=== PATIENT | female | born 1980 | race Caucasian/White ===

== ENCOUNTER 2021-02-14 20:33 | Emergency (ER) | payer OTHER, SELFPAY ==
--- NOTE | ~2021-02-14 | XR_ITS ---
EXAMINATION: XR forearm RT 2V DATE: 02/14/2021 21:46 INDICATION: Diffuse rash at the right forearm TECHNIQUE: AP an lateral views of the right forearm were obtained. COMPARISON: none FINDINGS: Alignment is normal. No fracture. Partially visualized metallic intramedullary orthopedic instrumenta tion is seen in the distal right humeral diaphysis. Correlate with surgical history. Joint spaces are normal. No right elbow joint effusion. No periosteal reaction or osteolysis. Soft tissues are unrema rkable. No soft tissue gas or radiopaque foreign bodies. IMPRESSION: 1. No osseous abnormalities, soft tissue gas or radiopaque foreign bodies. Reviewed, dictated and finalized at location A.
[2021-02-14 21:09] VITALS: BP 156/100; PULSE 114; RESP 15; TEMP 36.9; O2SAT 99
[2021-02-14 22:49] VITALS: BP 133/108; PULSE 86; RESP 20; TEMP 36.9; O2SAT 100
[2021-02-14 23:01] VITALS: BP 125/93; O2SAT 97
[2021-02-14 23:16] VITALS: BP 114/85; O2SAT 99
--- NOTE | 2021-02-14 23:31 | ED.EXTPRO ---
HPI - Extremity Problem General Chief complaint: Extremity Problem,Nontraumatic Stated complaint: rash/ discoloration from finger poked by trash Time Seen by Provider: 02/14/21 23:13 Source: patient and RN notes reviewed Mode of arrival: ambulatory Limitations: no limitations History of Present Illness HPI Narrative: This is a 40 year old female who presents for evaluation of right forearm discoloration. She states 5 hours ago she accidently pricked herself on an unknown object while picking up trash. She developed red rash to her forearm afterwards. She states this rash hayes and it is similar to when she had a staph infection in the past. She also notes bruising to her forearm. She denies fever, chills, nausea, vomiting weakness. She states she feels fine but she is concerned she may have a staph infection. Her last tetanus was 10 years ago. Related Data Allergies Allergy/AdvReac Type Severity Reaction Status Date / Time Penicillins Allergy Unknown Hives Verified 02/14/21 22:57 Review of Systems Review of Systems: All systems reviewed & are unremarkable except as noted in HPI and below PMFSH Past Medical History Medical History (Updated 02/15/21 @ 01:05 by Becky Lomas MD) Depression Surgical History Surgical History (Updated 02/14/21 @ 23:33 by Becky Lomas MD) History of surgery on arm Family History Family History (System 08/16/19 @ 10:28 by Shanthi Singh) Mother Family history of lung cancer Other Family history of coronary artery disease Social History Social History (Updated 02/14/21 @ 23:34 by Becky Lomas MD) Smoking status: Current every day smoker Alcohol intake: current Substance use: never Gender identity (if verbalized by the patient): Female Exam Const: General: no acute distress and alert Orientation/consciousness: patient oriented x3 Eyes: EOM: EOMs intact bilaterally Resp: Effort & Inspection: normal respiratory effort and no retractions Auscultation: clear to auscultation bilaterally Cardio: Rate: regular rate Rhythm: regular rhythm Heart sounds: no murmurs Neuro: General: patient oriented x3 and moves all extremities Extrem: Other: FROM, right dorsum forearm with erythematous nonblanching streak, with petechia and bruising to volar surface, no swelling Psych: Mental Status: mental status grossly normal Affect: normal affect Course Reevaluation(s) Reevaluation #1: PAtient labs are unremarkable so will discharge with oral antibiotics. Date: 02/15/21 Time: 01:03 Vital Signs Vital signs: Vital Signs Temperature 98.4 F 02/14/21 21:09 Pulse Rate 114 H 02/14/21 21:09 Respiratory Rate 15 02/14/21 21:09 Blood Pressure 156/100 H 02/14/21 21:09 Pulse Oximetry 99 02/14/21 21:09 Temperature 98.4 F 02/14/21 22:49 Pulse Rate 71 02/15/21 01:41 Respiratory Rate 22 H 02/15/21 01:41 Blood Pressure 124/100 H 02/15/21 01:41 Pulse Oximetry 100 02/15/21 01:41 MDM - Extremity (Nontraumatic) Lab Data Result diagrams: 02/15/21 00:18 02/15/21 00:18 Labs: Lab Results 02/15/21 02/15/21 Range/Units 00:18 00:18 WBC 9.5 (4.5-10.0) K/mm3 RBC 3.93 L (4.2-5.4) M/mm3 Hgb 12.7 (12.0-15.0) g/dL Hct 38.4 (37.0-47.0) % MCV 97.7 (80-100) fl MCH 32.3 (26-34) pg MCHC 33.1 (32-36) g/dl RDW 12.5 (11.5-14.5) % Plt Count 353 (150-375) k/mm3 MPV 9.5 (7.4-10.4) fl Immature Gran % (Auto) 0.4 (0-0.5) % Neut % (Auto) 68.5 (45.5-73.1) % Lymph % (Auto) 23.1 (18.3-44.2) % [place] % (Auto) 5.6 (2.6-8.5) % Eos % (Auto) 2.0 (0-4.4) % Baso % (Auto) 0.4 (0.2-1.2) % Lymph # (Auto) 2.18 (0.9-3.2) K/mm3 [place] # (Auto) 0.5 (0.1-0.6) K/mm3 Eos # (Auto) 0.2 (0-0.3) K/mm3 Baso # (Auto) 0.0 (0.0-0.1) K/mm3 Abs Immat Gran (auto) 0.04 H (0.00-0.031) K/mm3 Absolute Neuts (auto) 6.5 (1.3-6.7) K/mm3 Absolute Nucleated RB
[2021-02-15 00:23] LABS: Basophils Percent Auto 0.4 % (0.2-1.2); Eosinophils Absolute Auto 0.2 K/mm3 (0-0.3); Hematocrit 38.4 % (37.0-47.0); Hemoglobin 12.7 g/dL (12.0-15.0); Immature Granulocyte Absolute 0.04 K/mm3 (0.00-0.031); Immature Granulocyte Percent A 0.4 % (0-0.5); Lymphocytes Absolute Auto 2.18 K/mm3 (0.9-3.2); Lymphocytes Percent Auto 23.1 % (18.3-44.2); Mean Corpuscular HGB Conc 33.1 g/dl (32-36); Mean Corpuscular Hemoglobin 32.3 pg (26-34); Mean Corpuscular Volume 97.7 fl (80-100); Mean Platelet Volume 9.5 fl (7.4-10.4); Monocytes Absolute Auto 0.5 K/mm3 (0.1-0.6); Monocytes Percent Auto 5.6 % (2.6-8.5); Neutrophils Absolute Auto 6.5 K/mm3 (1.3-6.7); Neutrophils Percent Auto 68.5 % (45.5-73.1); Platelet Count Result 353 k/mm3 (150-375); Red Blood Count 3.93 M/mm3 (4.2-5.4); Red Cell Distribution Width 12.5 % (11.5-14.5); White Blood Count 9.5 K/mm3 (4.5-10.0)
--- NOTE | 2021-02-15 00:28 | PC.NURSE ---
Ancef not available in ED pyxis. Pharmacy notified, med to be tubed to unit.
[2021-02-15 00:39] LABS: Alanine Aminotransferase 14 U/L (4-35); Albumin Level 4.3 g/dL (3.5-5.1); Alkaline Phosphatase 61 U/L (38-126); Anion Gap 8 mmol/L (8-16); Aspartate Amino Transferase 29 U/L (14-36); Bilirubin,Total 0.3 mg/dL (0.2-1.3); Blood Urea Nitrogen 13 mg/dL (7-17); CRP 0.6 mg/dL (<1.0); Calcium 9.6 mg/dL (8.4-10.2); Carbon Dioxide 21 mmol/L (22-30); Chloride 109 mmol/L (98-107); Estimated CRCL calculation 80 ml/min; Estimated Glomerular Filt Rate > 60; Glucose 94 mg/dL (65-105); Potassium 3.4 mmol/L (3.4-5.0); Sodium 138 mmol/L (137-145)
[2021-02-15] MEDS: TETANUS,DIPHTHERIA,AC PERTUSSIS ADULT (0.5 ML) BOOSTRIX IM (00:57)
[2021-02-15 01:41] VITALS: BP 124/100; PULSE 71; RESP 22; O2SAT 100
== END 2021-02-15 01:42 | disposition home or self-care (01) ==
PROVIDERS: Emergency Provider General Practice; PCP Nurse Practitioner Family
DX: L03.113 Cellulitis of right upper limb (principal); F17.200 Nicotine dependence, unspecified, uncomplicated; Z23 Encounter for immunization
CPT/HCPCS: 36415; 73090; 80053; 85025; 86140; 90471; 90715; 96365; 99284; A9270; J0690

== ENCOUNTER 2023-03-21 08:14 | Emergency (ER) | payer OTHER, SELFPAY ==
--- NOTE | 2023-03-21 08:23 | ED.URI ---
HPI - URI/Sore Throat General Chief Complaint: Upper Respiratory Infection Stated Complaint: CONGESTION/HEADACHE/SORE THROAT/COUGH/SOB Time Seen by Provider: 03/21/23 08:23 Source: patient Mode of arrival: ambulatory Limitations: no limitations History of Present Illness HPI Narrative: Patient is a 42-year-old female who presents with congestion, headache, sore throat, cough since . Patient states she has used [id number] cold medicine but is still not better. Patient stayed home from work yesterday to rest with no relief. Denies any fever, chills, ear pain, nausea, vomiting, diarrhea. Patient was COVID negative on at home test. Related Data Home Medications Medication Instructions Recorded Confirmed bupropion HCl 150 mg tablet,12 hr 150 mg PO BID 03/21/23 03/21/23 sustained-release Allergies Allergy/AdvReac Type Severity Reaction Status Date / Time Penicillins Allergy Unknown Hives Verified 03/21/23 08:25 Review of Systems Review of Systems: All systems reviewed & are unremarkable except as noted in HPI and below Constitutional: Constitutional: Denies body ache(s), Denies chills, Reports fatigue, Denies fever(s), Denies headache(s), Denies malaise and Denies weakness Eyes: Eyes: Denies blurry vision, Denies itchy eyes and Denies loss of vision ENT: Denies otalgia, Reports headache(s), Reports nasal congestion, Denies sinus pain and Reports sore throat Cardiovascular: Cardiovascular: Denies chest pain, Denies irregular heart rhythm and Denies dyspnea Respiratory: Respiratory: Reports cough and Denies dyspnea Gastrointestinal: Gastrointestinal: Denies abdominal pain, Denies diarrhea, Denies nausea and Denies vomiting Musculoskeletal: Musculoskeletal: Denies back pain, Denies myalgias and Denies arthralgias Integumentary/Breasts: Skin/Breast: Denies pruritus and Denies rash Neurologic: Denies headache(s), Denies loss of vision and Denies weakness Psychiatric: Psychiatric: Reports no additional psychiatric complaints Endocrine: Endocrine: Denies fatigue Allergic/Immunologic: Allergic/Immunologic: Denies itchy eyes PMFSH Past Medical History Medical History (Updated 03/21/23 @ 08:45 by Tara Mcginnis, ANAI) Depression Surgical History Surgical History (Updated 02/14/21 @ 23:33 by Becky Lomas MD) History of surgery on arm Family History Family History (System 08/16/19 @ 10:28 by Shanthi Singh) Mother Family history of lung cancer Other Family history of coronary artery disease Social History Social History (Updated 02/14/21 @ 23:34 by Becky Lomas MD) Smoking status: Current every day smoker Alcohol intake: current Substance use: never Gender identity (if verbalized by the patient): Female Comments At time of signature, agree with nursing past medical, surgical, social and family history. There is no relevant family history pertinent to the presenting complaint. Exam Const: General: cooperative, healthy appearing, comfortable, no acute distress and well nourished Nutritional Appearance: well nourished Orientation/consciousness: patient oriented x3 Limitations: no limitations HENMT: Head: normal to inspection, normocephalic and atraumatic Ears: hearing grossly normal bilaterally, external ears normal, TM's normal bilaterally, EAC's normal and no periauricular adenopathy Face/Nose/Sinus: Normal external nose present, Abnormal mucous membranes and turbinates present erythematous bilateral and diffuse, normal facial exam, sinuses nontender and face symmetric Face and sinus: normal facial exam, sinuses nontender and face symmetric Mouth: Yes Normal oral and palatal mucosa present, Yes lip normal, Yes tongue normal, Yes Normal salivary glands and ducts present, Yes oropharynx normal and Yes moist mucous membranes Teeth and gingiva: dentition normal Throat: posterior oropharynx normal, uvula midline, abnormal tonsil bilateral hypertrophy 2+ and
[2023-03-21 08:28] VITALS: BP 120/84; PULSE 94; RESP 16; TEMP 36.6; O2SAT 98
--- NOTE | 2023-04-01 12:27 | PC.NURSE ---
PER ANNY IN [facility], NEITHER FACILITY RECEIVED SPECIMEN TO COMPLETE TESTING ON THE THROAT CULTURE.
== END 2023-03-21 08:50 | disposition home or self-care (01) ==
PROVIDERS: Emergency Provider Nurse Practitioner Family; PCP Nurse Practitioner Family
DX: J06.9 Acute upper respiratory infection, unspecified (principal); F17.200 Nicotine dependence, unspecified, uncomplicated; F32.A Depression, unspecified
CPT/HCPCS: 87081; 87804; 87880; 99213; G0463

== ENCOUNTER 2023-08-13 15:46 | Emergency (ER) | payer OTHER, SELFPAY ==
[2023-08-13 16:03] VITALS: BP 120/81; PULSE 101; RESP 16; TEMP 36.5; O2SAT 100
--- NOTE | 2023-08-13 16:06 | ED.URI ---
HPI - URI/Sore Throat General Chief Complaint: Upper Respiratory Infection Stated Complaint: CONGESTION/SORE THROAT/NO ENERGY/EYES SWELLING Source: patient and RN notes reviewed Mode of arrival: ambulatory Limitations: no limitations History of Present Illness HPI Narrative: 42 y/o female presented for c/o sinus congestion and pressure worsening since yesterday. Reports sore throat and waking with swollen eyes this morning. Endorses tearing but denies purulent drainage or itching from eyes. Started Claritin yesterday without much improvement. Denies cough, sob, wheezing, n/v/d/f/c. MD elicited complaint: cough Related Data Allergies Allergy/AdvReac Type Severity Reaction Status Date / Time Penicillins Allergy Unknown Hives Verified 08/13/23 15:58 Review of Systems Review of Systems: CONSTITUTIONAL: Endorses malaise, chills, sweats, fever EYES: Denies visual changes, redness, or discharge ENT: Reports rhinorrhea, congestion, sinus pain, otalgia, sore throat CARDIOVASCULAR: Denies chest pain, palpitations, edema RESPIRATORY: Reports post nasal drainage. Denies dyspnea GASTROINTESTINAL: Denies abdominal pain, nausea, vomiting, diarrhea SKIN: Denies rash or itching MUSCULOSKELETAL: Denies myalgia NEUROLOGIC: Denies headache PMFSH Past Medical History Medical History Depression Surgical History Surgical History History of surgery on arm Family History Family History Mother Family history of lung cancer Other Family history of coronary artery disease Social History Social History Smoking status: Current every day smoker Alcohol intake: current Substance use: never Gender identity (if verbalized by the patient): Female Exam Narrative: GENERAL: well-appearing, nontoxic no acute distress. HEAD: Normocephalic EYES: PERRLA, conjunctivae clear ENT: Mucous membranes moist. Bilateral nares with green drainage, red turbinates. TMs pearly gunn with dull light reflex bilaterally; no tragal tenderness. Oropharynx erythematous without lesions or exudate, tonsils 1+. no drooling, no hoarseness, no trismus, uvula midline. No tripod positioning, muffled voice, soft palate or pharyngeal wall bulging NECK: Supple. No lymphadenopathy CHEST: Clear to auscultation, breath sounds equal. No wheezing, rhonchi, rales, or stridor. No respiratory distress, speaks in full sentences. HEART: Regular rate and rhythm. No murmur heard. SKIN: Warm, dry, no rash. NEURO: Alert and oriented x3. PSYCH: Normal mood and affect Course Course Emergency Course: Patient is aware of diagnosis, understands and agrees to treatment plan. Anticipatory guidance given. Patient agrees to follow-up as directed and is aware of reasons to seek care at the emergency department. Portions of this record may have been created with voice recognition software Level of Care: Express Care Visit Vital Signs Vital signs: Vital Signs Temperature 97.7 F 08/13/23 16:03 Pulse Rate 101 H 08/13/23 16:03 Respiratory Rate 16 08/13/23 16:03 Blood Pressure 120/81 08/13/23 16:03 Pulse Oximetry 100 08/13/23 16:03 Temperature 97.7 F 08/13/23 16:03 Pulse Rate 101 H 08/13/23 16:03 Respiratory Rate 16 08/13/23 16:03 Blood Pressure 120/81 08/13/23 16:03 Pulse Oximetry 100 08/13/23 16:03 reviewed MDM - URI/Sore Throat MDM Narrative Medical decision making narrative: Neg covid, flu strep. Results reviewed with patient. Discussed physical exam findings. Advised supportive measures and signs/symptoms to go to the ER. Pt is appropriate for outpt treatment and f/u. Differential Diagnosis Differential diagnosis: Likely upper respiratory infection, sinusitis and viral infection Discharge Plan Discharge Cl
== END 2023-08-13 16:27 | disposition home or self-care (01) ==
PROVIDERS: Emergency Provider Nurse Practitioner Family; PCP Nurse Practitioner Family
DX: J06.9 Acute upper respiratory infection, unspecified (principal); Z20.822 Contact with and (suspected) exposure to COVID-19; F17.200 Nicotine dependence, unspecified, uncomplicated
CPT/HCPCS: 87081; 87426; 87804; 87880; 99213; C9803; G0463

== ENCOUNTER 2023-08-29 08:49 | Emergency (ER) | payer OTHER, SELFPAY ==
[2023-08-29 08:53] VITALS: BP 122/96; PULSE 108; RESP 16; TEMP 36.6; O2SAT 100
--- NOTE | 2023-08-29 09:29 | ED.URI ---
HPI - URI/Sore Throat General Chief Complaint: Upper Respiratory Infection Stated Complaint: Cough;Sore Throat;Congestion Time Seen by Provider: 08/29/23 09:20 Source: patient and RN notes reviewed Mode of arrival: ambulatory Limitations: no limitations History of Present Illness HPI Narrative: Patient presents today with a one-week history of nasal congestion and a 3 day history of cough, sore throat, chills and sweats, headache. Denies fever. Reports shortness of breath with coughing episodes. She has been taking DayQuil and NyQuil with mild relief. Related Data Allergies Allergy/AdvReac Type Severity Reaction Status Date / Time Penicillins Allergy Unknown Hives Verified 08/29/23 09:25 Review of Systems Review of Systems: CONSTITUTIONAL: Denies body aches, fever.+ chills, sweats EYES: Denies visual changes, redness, or discharge. ENT: Denies rhinorrhea, or otalgia.+ congestion, sore throat CARDIOVASCULAR: Denies chest pain, palpitations, or edema. RESPIRATORY: Denies dyspnea.+ cough GASTROINTESTINAL: Denies abdominal pain, nausea, vomiting, or diarrhea. GENITOURINARY: Denies dysuria or hematuria. SKIN: Denies rash, itching, or wounds. MUSCULOSKELETAL: Denies back pain, joint pain, or myalgia. NEUROLOGIC: Denies numbness, tingling, or weakness.+ headache PSYCH: Denies depression or anxiety. [facility] Past Medical History Medical History Depression Surgical History Surgical History History of surgery on arm Family History Family History Mother Family history of lung cancer Other Family history of coronary artery disease Social History Social History Smoking status: Current every day smoker Alcohol intake: current Substance use: never Gender identity (if verbalized by the patient): Female Comments At time of signature, I have reviewed and agree with nursing past medical, surgical, social and family history unless otherwise noted. Please see nursing chart for further information. There is no relevant family history pertinent to the presenting complaint Exam Narrative: GENERAL: Ill-appearing, well-nourished, and in no acute distress. HEAD: Normocephalic, atraumatic. EYES: EOMI. No redness or drainage. Conjunctivae normal. ENT: Mucous membranes pink and moist. Nares congested with rhinorrhea. TMs normal bilaterally. Throat normal. Uvula midline. NECK: Normal AROM. Supple. No lymphadenopathy. CHEST: No respiratory distress. Clear to auscultation. HEART: Regular rate and rhythm. No murmur appreciated. EXTREMITIES: Normal range of motion. No edema. SKIN: Warm, dry, no rash. Capillary refill normal. Normal skin turgor. NEURO: No focal deficits. Alert and oriented x3. Gait steady. PSYCH: Normal affect. No signs of depression or anxiety. Course Course Level of Care: Express Care Visit Vital Signs Vital signs: Vital Signs Temperature 97.8 F 08/29/23 08:53 Pulse Rate 108 H 08/29/23 08:53 Respiratory Rate 16 08/29/23 08:53 Blood Pressure 122/96 H 08/29/23 08:53 Pulse Oximetry 100 08/29/23 08:53 Temperature 97.8 F 08/29/23 08:53 Pulse Rate 108 H 08/29/23 08:53 Respiratory Rate 16 08/29/23 08:53 Blood Pressure 122/96 H 08/29/23 08:53 Pulse Oximetry 100 08/29/23 08:53 Reviewed MDM - URI/Sore Throat MDM Narrative Medical decision making narrative: Rapid strep negative. Culture pending. Prescription for prednisone and Tessalon Perles sent to pharmacy to treat patient's symptoms. Discussed [id number] treatment and duration of illness as well. Anticipatory guidance given. Differential Diagnosis Differential diagnosis: Likely upper respiratory infection, otitis media, sinusitis, viral infection, bron
== END 2023-08-29 09:37 | disposition home or self-care (01) ==
PROVIDERS: Emergency Provider Nurse Practitioner; PCP Nurse Practitioner Family
DX: J06.9 Acute upper respiratory infection, unspecified (principal); F17.200 Nicotine dependence, unspecified, uncomplicated
CPT/HCPCS: 87081; 87880; 99213; G0463

== ENCOUNTER 2024-02-07 16:51 | Emergency (ER) | payer MEDICAID, SELFPAY ==
[2024-02-07 17:25] VITALS: BP 105/79; PULSE 86; RESP 16; TEMP 36; O2SAT 99
--- NOTE | 2024-02-07 18:13 | ED.GENADULT ---
HPI - General Adult General Chief complaint: Nausea/Vomiting/Diarrhea Stated complaint: STOMACH PAIN/VOMITING/DIZZY Time Seen by Provider: 02/07/24 18:13 Source: patient Mode of arrival: ambulatory Limitations: no limitations History of Present Illness HPI narrative: 43-year-old female patient presents to the [facility] for request of a return to work note. Patient states that Thursday last week she started having some nausea and and Thursday last week was having nausea, vomiting, chills, body aches and overall just not feeling well. Patient states she attributed to a possible influenza. Patient states she did test herself for COVID and did test negative for COVID. 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 Patient states she is feeling much better today. Patient states she has slight headache but overall able to keep down food and fluid and no vomiting today and no fever the past 24 hours. Related Data Home Medications Medication Instructions Recorded Confirmed venlafaxine 75 mg capsule,extended 75 mg PO DAILY 02/07/24 02/07/24 release 24 hr (Effexor XR) Allergies Allergy/AdvReac Type Severity Reaction Status Date / Time Penicillins Allergy Unknown Hives Verified 02/07/24 17:28 Review of Systems Review of Systems: CONSTITUTIONAL: Denies fever, chills, or sweats. EYES: Denies visual changes, redness, or discharge. ENT: Denies rhinorrhea, congestion, sore throat, or otalgia. CARDIOVASCULAR: Denies chest pain, palpitations, or edema. RESPIRATORY: Denies cough or dyspnea. GASTROINTESTINAL: Denies abdominal pain, Resolving nausea, vomiting, or diarrhea. GENITOURINARY: Denies dysuria or hematuria. SKIN: Denies rash or itching. MUSCULOSKELETAL: Denies back pain, joint pain, or myalgia. NEUROLOGIC: Denies headache, numbness, or weakness. PSYCHIATRIC: Denies anxiety or depression. [facility], [facility] Past Medical History Medical History Depression Surgical History Surgical History History of surgery on arm Family History Family History Mother Family history of lung cancer Other Family history of coronary artery disease Social History Social History Smoking status: Current every day smoker Alcohol intake: current Substance use: never Gender identity (if verbalized by the patient): Female Comments at the time of my signature I agree with nursing past medical history, surgical, social, and family history. There is no relevant family history pertinent to the presenting complaint. Exam Narrative: GENERAL: Well-appearing, well-nourished, and in no acute distress. HEAD: Normocephalic, atraumatic. EYES: PERRLA and EOMI. ENT: Nares clear, no rhinorrhea or epistaxis. Mucous membranes moist. posterior pharynx with no erythema, tonsillar enlargement, exudates or lesions present. Bilateral TMs are clear with no erythema or foreign bodies the canal. NECK: Supple. No lymphadenopathy CHEST: Clear to auscultation. No respiratory distress. HEART: Regular rate and rhythm. No murmur heard. Normal peripheral pulses. ABDOMEN: Soft, nontender, nondistended, normal active bowel sounds. EXTREMITIES: Normal range of motion. No edema. SKIN: Warm, dry, no rash. NEURO: No focal deficits. Alert and oriented x3. Course Course Level of Care: Express Care Visit Vital Signs Vital signs: Vital Signs Temperature 36.0 C L 02/07/24 17:25 Pulse Rate 86 02/07/24 17:25 Respiratory Rate 16 02/07/24 17:25 Blood Pressure 105/79 02/07/24 17:25 Pulse Oximetry 99 02/07/24 17:25 Temperature 36.0 C L 02/07/24 17:25 Pulse Rate 86 02/07/24 17:25 Respiratory Rate 16 02/07/24 17:25 Blood Pressure 105/79
== END 2024-02-07 18:24 | disposition home or self-care (01) ==
PROVIDERS: Emergency Provider Nurse Practitioner Family; PCP Nurse Practitioner Family
DX: R11.2 Nausea with vomiting, unspecified (principal); F17.200 Nicotine dependence, unspecified, uncomplicated; F32.A Depression, unspecified
CPT/HCPCS: 99211; G0463

== ENCOUNTER 2024-02-29 17:33 | Emergency (ER) | payer MEDICAID, SELFPAY ==
[2024-02-29 17:38] VITALS: BP 146/103; PULSE 94; RESP 18; TEMP 36.9; O2SAT 100
--- NOTE | 2024-02-29 17:42 | ED.GENADULT ---
HPI - General Adult General Chief complaint: Upper Respiratory Infection Stated complaint: SORE THROAT/CONGETION/EARS/FEVER Time Seen by Provider: 02/29/24 17:44 Source: patient, RN notes reviewed and old records reviewed Mode of arrival: ambulatory Limitations: no limitations History of Present Illness HPI narrative: Patient presents today with complaints of runny nose, sore throat, cough, fever for 2 days. She reports that symptoms began Thursday morning, she took COVID test approximately 8 hours later. This was negative. She has not retested since. She has been taking Tylenol and ibuprofen for her symptoms, moderate relief. Is not short of breath. No other concerns at this time. Related Data Home Medications Medication Instructions Recorded Confirmed No Home Medications 02/29/24 02/29/24 Allergies Allergy/AdvReac Type Severity Reaction Status Date / Time Penicillins Allergy Unknown Hives Verified 02/29/24 17:46 Review of Systems Review of Systems: All systems reviewed & are unremarkable except as noted in HPI and below Constitutional: Constitutional: Reports no additional constitutional complaints ENT: Reports system reviewed and no additional complaints, except as documented Cardiovascular: Cardiovascular: Reports no additional cardiovascular complaints Respiratory: Respiratory: Reports no additional respiratory complaints Gastrointestinal: Gastrointestinal: Reports no additional gastrointestinal complaints [facility] Past Medical History Medical History Depression Surgical History Surgical History History of surgery on arm Family History Family History Mother Family history of lung cancer Other Family history of coronary artery disease Social History Social History Smoking status: Current every day smoker Alcohol intake: current Substance use: never Gender identity (if verbalized by the patient): Female Comments At the time of my signature, I reviewed and agree with the nursing past medical, surgical, social, and family history. There is no relevant family history pertinent to the patient complaint. Exam Const: General: cooperative, no acute distress, alert and awake Orientation/consciousness: oriented to person, oriented to place and oriented to time HENMT: Head: normal to inspection Resp: Effort & Inspection: normal respiratory effort and able to speak in complete sentences Auscultation: clear to auscultation bilaterally, no crackles, no rales, no rhonchi and no wheezes Cardio: Palpation: normal PMI Rate: regular rate Rhythm: regular rhythm Heart sounds: S1 normal heart sound present and S2 normal heart sound present Neuro: General: oriented to person, oriented to place and oriented to time Cranial nerves: Yes CN's II-XII intact bilaterally Psych: Appearance: grossly normal Thought process: Normal thought process present Insight: Good insight present (Psych) Judgement: Good judgement present (Psych) Course Course Level of Care: Express Care Visit Vital Signs Vital signs: Vital Signs Temperature 98.4 F 02/29/24 17:38 Pulse Rate 94 02/29/24 17:38 Respiratory Rate 18 02/29/24 17:38 Blood Pressure 146/103 H 02/29/24 17:38 Pulse Oximetry 100 02/29/24 17:38 Oxygen Delivery Room Air 02/29/24 17:38 Temperature 98.4 F 02/29/24 17:38 Pulse Rate 94 02/29/24 17:38 Respiratory Rate 18 02/29/24 17:38 Blood Pressure 146/103 H 02/29/24 17:38 Pulse Oximetry 100 02/29/24 17:38 Oxygen Delivery Room Air 02/29/24 17:38 Reviewed Medical Decision Making MDM Narrative Medical decision making narrative: Patient with sore throat, cough, fever for approximately 48 hours. Negative for rapid strep, culture sent. Nega
== END 2024-02-29 18:29 | disposition home or self-care (01) ==
PROVIDERS: Emergency Provider Nurse Practitioner Family; PCP Nurse Practitioner Family
DX: J06.9 Acute upper respiratory infection, unspecified (principal); F17.200 Nicotine dependence, unspecified, uncomplicated; Z20.822 Contact with and (suspected) exposure to COVID-19
CPT/HCPCS: 87081; 87426; 87804; 87880; 99213; G0463

== ENCOUNTER 2024-12-05 15:08 | Emergency (ER) | payer MEDICAID, SELFPAY ==
[2024-12-05 15:22] VITALS: BP 116/82; PULSE 96; RESP 16; TEMP 37; O2SAT 99
[2024-12-05 15:35] LABS: EDCOVIDSCREEN Negative (Negative); EDINFLUASCREEN Negative (Negative); EDINFLUBSCREEN Negative (Negative)
--- NOTE | 2024-12-05 15:35 | ED.URI ---
HPI - URI/Sore Throat General Chief Complaint: Upper Respiratory Infection Stated Complaint: Congestion/Vomiting Source: patient and RN notes reviewed Mode of arrival: ambulatory Limitations: no limitations History of Present Illness HPI Narrative: Patient is a 44-year-old female who presents to the [facility] with complaints of nasal congestion, nasal drainage, headache, and bilateral ear pain ( worse on the right than the left). Patient states that her symptoms developed on Thursday. They have continued to worsen. She denies cough, chest pain, shortness of breath. Denies sore throat. Unsure of any known sick contacts. Denies fever. Related Data Allergies Allergy/AdvReac Type Severity Reaction Status Date / Time Penicillins Allergy Unknown Hives Verified 12/05/24 15:15 Review of Systems Review of Systems: CONSTITUTIONAL: Denies fever, chills, or sweats. EYES: Denies visual changes, redness, or discharge. ENT: Reports otalgia but denies sore throat. Reports congestion. CARDIOVASCULAR: Denies chest pain, palpitations, or edema. RESPIRATORY: Denies cough or dyspnea. GASTROINTESTINAL: Denies abdominal pain, nausea, vomiting, or diarrhea. GENITOURINARY: Denies dysuria or hematuria. SKIN: Denies rash or itching. MUSCULOSKELETAL: Denies back pain, joint pain, or myalgia. NEUROLOGIC: Reports headache but denies numbness or weakness. Pertinent positives per HPI. PMFSH Past Medical History Medical History Depression Surgical History Surgical History History of surgery on arm Family History Family History Mother Family history of lung cancer Other Family history of coronary artery disease Social History Social History Smoking status: Current every day smoker Alcohol intake: current Substance use: never Gender identity (if verbalized by the patient): Female Comments At the time of my signature, I reviewed and agree with the nursing past medical, surgical, social, and family history. There is no relevant family history pertinent to the patient complaint. Exam Narrative: GENERAL: This is a well-nourished, well-developed patient, in no apparent distress. HEAD: normocephalic, atraumatic. EYES: Sclera clear/white. Vision is grossly intact. EARS: External ears normal, auditory canals clear and without drainage, Bilateral TMs erythematous; right TM bulging. Hearing grossly intact. NOSE: External nose normal. + congestion. Sinus tenderness. THROAT: Mucous membranes moist, posterior pharynx clear. NECK: Neck supple, non-tender without lymphadenopathy, masses or thyromegaly. CARDIOVASCULAR: Regular rate and rhythm without murmurs, gallops, or rubs. RESPIRATORY: Clear to auscultation. Breath sounds equal bilaterally. No wheezes, rales, or rhonchi. GASTROINTESTINAL: Abdomen soft, non-tender, nondistended. Bowel sounds are active. No hepato-splenomegaly, or palpable masses. No guarding. SKIN: warm, intact with no suspicious lesions or rash, good texture and turgor. NEURO: awake, alert, and oriented to person, place and time. There were no obvious focal neurologic abnormalities. Course Course Level of Care: Express Care Visit Vital Signs Vital signs: Vital Signs Temperature 98.6 F 12/05/24 15:22 Pulse Rate 96 12/05/24 15:22 Respiratory Rate 16 12/05/24 15:22 Blood Pressure 116/82 12/05/24 15:22 Pulse Oximetry 99 12/05/24 15:22 Temperature 98.6 F 12/05/24 15:22 Pulse Rate 96 12/05/24 15:22 Respiratory Rate 16 12/05/24 15:22 Blood Pressure 116/82 12/05/24 15:22 Pulse Oximetry 99 12/05/24 15:22 Reviewed MDM - URI/Sore Throat MDM Narrative Medical decision making narrative: Take antibiotics as directed. May given ibuprofen and/or Tylenol as needed for pain and/or fever. Follow up with primary care provider in 7-10 days to have ear rechecked. Go to the ER for any new or worsening symptoms. Avoid smoking/second-hand smoke. Continue to take Tylenol or Motrin for pain. Increase your Vitamin C intake. Use a humidifier or vaporizer at night. Take Medications as prescribed. Drink plenty of water. 8-10 glasses per day. Use flonase 2 times per day for 5 days then as needed Take mucinex 2 times per day and be sure to take with 8oz of water. Follow up with Primary provider if not getting better. Differential Diagnosis Differential diagnosis: Likely upper respiratory infection, otitis media, sinusitis, viral infection, influenza and other (covid) Lab Data Attestation: I reviewed the patient's lab results. Labs: Lab Results 12/05/24 Range/Units 15:33 POC Influenza A Ag Negative (Negative) POC Influenza B Ag Negative (Negative) POC SARS CoV-2 Ag Negative (Negative) Critical Care Time Critical Care Time Critical Care Time: No Discharge Plan Discharge Clinical Impression: Acute right otitis media Sinusitis Qualifiers: Sinusitis location: unspecified location Chronicity: unspecified Qualified Code(s): J32.9 - Chronic sinusitis, unspecified Patient Disposition: Home, Self-Care Condition: Stable Instructions: Antibiotic Form, Sinusitis (ED), Ear Infection (ED) Additional Instructions: Take antibiotics as directed. May given ibuprofen and/or Tylenol as needed for pain and/or fever. Follow up with primary care provider in 7-10 days to have ear rechecked. Go to the ER for any new or worsening symptoms. Avoid smoking/second-hand smoke. Continue to take Tylenol or Motrin for pain. Increase your Vitamin C intake. Use a humidifier or vaporizer at night. Take Medications as prescribed. Drink plenty of water. 8-10 glasses per day. Use flonase 2 times per day for 5 days then as needed Take mucinex 2 times per day and be sure to take with 8oz of water. Follow up with Primary provider if not getting better. Patient Language: Macedonian Prescriptions: New azithromycin 250 mg tablet See Rx Instructions .ROUTE .COMPLEX Qty: 6 0RF Rx Instructions: For 250 mg dose pack: take 500 mg today (day 1), then 250 mg for 4 days (days 2-5) fluticasone propionate [Flonase Allergy Relief] 50 mcg/actuation spray,suspension 1 spray intranasal BID Qty: 16 0RF Rx Instructions: administer into each nostril Follow-up/Referrals: PHYSICIAN,ONLINE MARKETING DIRECTOR [Primary Care Provider] - Stand Alone Forms: Work/School Release IP Time of Disposition: 15:38
== END 2024-12-05 15:43 | disposition home or self-care (01) ==
PROVIDERS: Emergency Provider Nurse Practitioner
DX: H66.91 Otitis media, unspecified, right ear (principal); J32.9 Chronic sinusitis, unspecified; Z20.822 Contact with and (suspected) exposure to COVID-19; F17.200 Nicotine dependence, unspecified, uncomplicated
CPT/HCPCS: 87426; 87804; 99213; G0463

== ENCOUNTER 2025-02-05 18:03 | Emergency (ER) | payer OTHER, SELFPAY ==
[2025-02-05 18:54] VITALS: BP 134/98; PULSE 114; RESP 16; TEMP 36.8; O2SAT 100
--- NOTE | 2025-02-05 18:54 | ED_ITS ---
HPI - Skin/Abscess/Foreign Bdy General Chief complaint: Extremity Problem,Nontraumatic Stated complaint: L ELBOW PAIN/REDNESS Time Seen by Provider: 02/05/25 18:50 Source: patient Mode of arrival: ambulatory Limitations: no limitations History of Present Illness HPI narrative: Lynn is a 44-year-old female patient presenting to the clinic today with complaints of left elbow pain and redness x1 0.5 weeks. She reports 1 and half weeks ago she was possibly bit by a spider. Has redness, swelling, and pain to the left elbow. No known injury. Denies fevers, chills, body aches. Related Data Allergies Allergy/AdvReac Type Severity Reaction Status Date / Time Penicillins Allergy Unknown Hives Verified 12/05/24 15:15 Review of Systems Review of Systems: Pertinent positives per HPI. Patient denies any fever, chills, rash, headache, visual changes, dizziness, cough, runny nose, sore throat, shortness of breath, chest pain, palpitations, nausea, vomiting, diarrhea, constipation, abdominal pain, or any urinary issues. PMFSH Past Medical History Medical History Depression Surgical History Surgical History History of surgery on arm Family History Family History Mother Family history of lung cancer Other Family history of coronary artery disease Social History Social History Smoking status: Current every day smoker Alcohol intake: current Substance use: never Gender identity (if verbalized by the patient): Female Comments At the time of my signature, I reviewed and agree with the nursing past medical, surgical, social, and family history. There is no relevant family history pertinent to the patient complaint. Exam Narrative: General: Well-developed, well nourished, in no apparent distress Head: Normocephalic, atraumatic. Cardio: Regular rate and rhythm, s1 and s2 normal, no murmur appreciated. Resp: Clear to auscultation bilaterally, no rhonchi, rales, wheezing or rubs. Musculoskeletal: No deformity, no drainage, redness, swelling, erythema, and tender to palpation over the left elbow with very minimal fluctuance, limited flexion and extension due to pain and swelling, redness measuring approximately 3 cm by 3 cm, muscle strength strong and equal, peripheral pulse strong, no edema, no cyanosis, normal gait and station Course Course Emergency Course: Portions of this record may have been created with voice recognition software. Level of Care: Express Care Visit Vital Signs Vital signs: Vital Signs Temperature 36.8 C 02/05/25 18:54 Pulse Rate 114 H 02/05/25 18:54 Respiratory Rate 16 02/05/25 18:54 Blood Pressure 134/98 H 02/05/25 18:54 Pulse Oximetry 100 02/05/25 18:54 Temperature 36.8 C 02/05/25 18:54 Pulse Rate 114 H 02/05/25 18:54 Respiratory Rate 16 02/05/25 18:54 Blood Pressure 134/98 H 02/05/25 18:54 Pulse Oximetry 100 02/05/25 18:54 Vital signs reviewed MDM - Skin/Abscess/Foreign Bdy MDM Narrative Medical decision making narrative: At the time of visit patient is resting comfortably on the exam table. Patient appears to be nontoxic. Plan: I suspect patient has left elbow cellulitis. Prescription for clindamycin was sent to the pharmacy. Supportive measures were discussed with the patient and they voiced understanding discharge instructions and agrees to treatment plan. Return precautions reviewed Differential Diagnosis Differential diagnosis: Likely abscess of skin or subcutaneous tissue, viral exanthem, dermatophytosis, urticaria, herpes zoster, allergic reaction to drug, cellulitis, eczema, insect bites, impetigo and contact dermatitis Discharge Plan Discharge Clinical Impression: Cellulitis of left elbow Patient Disposition: Home Condition: Stable Instructions: Antibiotic Form, Cellulitis (ED) Additional Instructions: Increase fluids and stay well hydrated Take clindamycin as prescribed Rest, ice, and elevate May take Tylenol/Motrin as needed for pain/fever Go to the emergency room if symptoms worsen-fever this not controlled by Tylenol Motrin, increase in swelling, increase in redness, increasing pain, purulent discharge, or streaking Patient Language: Tristanian Prescriptions: New clindamycin HCl [Cleocin HCl] 300 mg capsule 300 mg PO Q8H 10 Days Qty: 30 0RF No Action azithromycin 250 mg tablet See Rx Instructions .ROUTE .COMPLEX Qty: 6 0RF Rx Instructions: For 250 mg dose pack: take 500 mg today (day 1), then 250 mg for 4 days (days 2-5) fluticasone propionate [Flonase Allergy Relief] 50 mcg/actuation spray,suspension 1 spray intranasal BID Qty: 16 0RF Rx Instructions: administer into each nostril Follow-up/Referrals: Walter,Maria Alejandra Reyes APN [Primary Care Provider] - Stand Alone Forms: Work/School Release IP Time of Disposition: 18:57 Quality NIHSS Nursing Documentation ED NIHSS nursing documentation: reviewed/agree
== END 2025-02-05 19:11 | disposition home or self-care (01) ==
PROVIDERS: Emergency Provider Nurse Practitioner Family; PCP Nurse Practitioner Family
DX: L03.114 Cellulitis of left upper limb (principal); F17.200 Nicotine dependence, unspecified, uncomplicated
CPT/HCPCS: 99213; G0463